=== PATIENT | female | born 1985 | race Caucasian/White ===

== ENCOUNTER 2023-06-18 13:35 | Day surgery (SDC) | payer BC ==
[2023-06-18 14:02] VITALS: BMI 40.7
[2023-06-18 15:00] LABS: Bilirubin Neg (Negative); Blood, Urine Negative (Negative); Clarity Clear (Clear); Glucose, Urine (Dipstick) Normal (Negative); Ketone, Urine Negative (Negative); Leukocyte Negative (Negative); Nitrite Negative (Negative); Protein, Urine (Dipstick) Negative (Neg-Trace); Urobilinogen Normal mg/dL (Less than 2); pH, Urine 6.5 (5.0-9.0)
[2023-06-18] MEDS ORDERED: hydrALAZINE 20 MG/ML VIAL SLOW IVP PRN (15:02)
[2023-06-18 15:41] LABS: CAUTI Indications for Culture Dysuria,urgency,freq; RBC/HPF 0-3 HPF (0-3)
[2023-06-18 15:42] LABS: Bacteria/HPF 2+ HPF (None Seen)
[2023-06-18 15:44] LABS: Urine Culture Reflex No No
== END 2023-06-18 15:25 | disposition home or self-care (01) ==
LOC: CSHLD/OP 13:35
PROVIDERS: ATTEND Obstetrics & Gynecology
DX: O47.03 False labor before 37 completed weeks of gestation, third trimester (principal); O34.211 Maternal care for low transverse scar from previous cesarean delivery; O09.523 Supervision of elderly multigravida, third trimester; Z79.899 Other long term (current) drug therapy; Z3A.35 35 weeks gestation of pregnancy
CPT/HCPCS: 81001; 99283

== ENCOUNTER 2023-07-04 14:50 | Day surgery (SDC) | payer BC ==
[2023-07-04 15:20] VITALS: BMI 39.1
[2023-07-04] MEDS ORDERED: hydrALAZINE 20 MG/ML VIAL SLOW IVP PRN (15:31)
[2023-07-04 16:13] LABS: Bilirubin Neg (Negative); Blood, Urine Negative (Negative); Clarity Clear (Clear); Glucose, Urine (Dipstick) Normal (Negative); Ketone, Urine Negative (Negative); Leukocyte 25 (Negative); Nitrite Negative (Negative); Protein, Urine (Dipstick) 15 mg/dl (Neg-Trace); Specific Gravity, Urine 1.015 (1.005-1.030)
[2023-07-04 16:26] LABS: RBC/HPF None Seen HPF (0-3); WBC/HPF 0-3 HPF (0-3)
[2023-07-04 16:27] LABS: Bacteria/HPF None Seen HPF (None Seen); Squamous Epithelial 0-3 HPF (0-3)
== END 2023-07-04 16:44 | disposition home or self-care (01) ==
LOC: CSHLD/OP 14:50
PROVIDERS: ATTEND Obstetrics & Gynecology
DX: O47.1 False labor at or after 37 completed weeks of gestation (principal); O34.211 Maternal care for low transverse scar from previous cesarean delivery; B00.9 Herpesviral infection, unspecified; O99.343 Other mental disorders complicating pregnancy, third trimester; F39 Unspecified mood [affective] disorder; N87.9 Dysplasia of cervix uteri, unspecified; Z98.890 Other specified postprocedural states; O98.513 Other viral diseases complicating pregnancy, third trimester; Z79.899 Other long term (current) drug therapy; Z3A.37 37 weeks gestation of pregnancy
CPT/HCPCS: 81001

== ENCOUNTER 2023-07-23 05:30 | Inpatient (IN) | payer BC ==
[2023-07-20 11:48] LABS: Hematocrit 40.3 % (34.9-44.5); Hemoglobin 13.9 g/dL (12.0-15.5); Mean Corpuscular HGB CONC 34.5 g/dL (32.0-36.0); Mean Corpuscular Hemoglobin 32.3 pg (27.0-33.0); Mean Corpuscular Volume 93.7 fl (81.6-98.3); Platelet Count 266 10x3/uL (150-450); RBC Distribution Width 14.4 % (11.5-14.5); White Blood Cell (WBC) Count 13.1 10x3/uL (3.5-10.5)
[2023-07-20 12:21] LABS: HBSAg Index 0.18 S/CO (0-0.99); Hep B Surf Ag Non-Reactive S/CO (NonReactive)
[2023-07-20 12:22] LABS: Syphilis Antibody Nonreactive (Nonreactive); Syphilis Antibody Index 0.13 S/CO (<1.00 Non-Reactive)
[2023-07-23] MEDS ORDERED: Ondansetron PF 4 MG/2 ML Vial IVP PRN ×4 (05:51→11:26)
[2023-07-23] MEDS ORDERED: Promethazine HCl 25 MG/ML VIAL IM PRN ×2 (05:51→06:46)
[2023-07-23] MEDS ORDERED: Lactated Ringer's 1,000 ML IV SCH (05:51)
[2023-07-23] MEDS ORDERED: hydrALAZINE 20 MG/ML VIAL SLOW IVP PRN ×2 (05:51→11:26)
[2023-07-23] MEDS ORDERED: Famotidine/PF 20 mg/2ml Vial SLOW IVP PRN (05:51)
[2023-07-23] MEDS ORDERED: Bicitra 30 ML UDCUP PO PRN (05:51)
[2023-07-23] MEDS ORDERED: CEFAZOLIN 2 GM in Sodium Chloride 0.9% 100 ML IVPB SCH (05:51)
[2023-07-23 05:52] VITALS: BMI 41.5
[2023-07-23] MEDS ORDERED: Ketorolac Tromethamine 30 MG (1 mL) VIAL IVP PRN (06:46)
[2023-07-23] MEDS ORDERED: HYDROmorphone 0.5 MG/0.5 ML SYRINGE SLOW IVP PRN (06:46)
[2023-07-23] MEDS ORDERED: Naloxone HCl 0.4 mg/ml Vial IV PRN (06:46)
[2023-07-23] MEDS ORDERED: Moisturizing Cream (Eucerin) 113 GM JAR TOP PRN (06:46)
[2023-07-23] MEDS ORDERED: Naloxone HCl 0.4 mg/ml Vial IVP PRN ×2 (06:46)
[2023-07-23] MEDS ORDERED: Promethazine HCl 25 MG SUPP PR PRN (06:46)
[2023-07-23] MEDS ORDERED: Meperidine HCl/PF 25 MG (1 mL) VIAL SLOW IVP PRN (06:46)
[2023-07-23] MEDS ORDERED: fentaNYL 50 mcg/mL 1 mL Vial SLOW IVP PRN (06:46)
[2023-07-23] MEDS ORDERED: diphenhydrAMINE 50 MG/ML VIAL IVP PRN (06:46)
[2023-07-23] MEDS ORDERED: fentaNYL 50 mcg/mL 1 mL Vial ONE (06:47)
[2023-07-23] MEDS ORDERED: Dexamethasone 4 mg/ml Vial ONE (06:47)
[2023-07-23] MEDS ORDERED: Phenylephrine 10 MG/ML VIAL ONE (06:47)
[2023-07-23] MEDS ORDERED: Ondansetron PF 4 MG/2 ML Vial ONE (06:47)
[2023-07-23] MEDS ORDERED: Morphine PF 10 MG/10 ML VIAL ONE (06:47)
[2023-07-23] MEDS ORDERED: Oxytocin 10 UNITS/ML VIAL ONE (06:48)
[2023-07-23] MEDS ORDERED: Phytonadione Neonatal 1 MG/0.5 ML AMP ONE (06:56)
[2023-07-23] MEDS ORDERED: Hepatitis B Vaccine 10 MCG/0.5 ML SYR ONE (06:56)
[2023-07-23] MEDS ORDERED: Erythromycin Base 0.5% Oint 1 GM TUBE ONE (06:56)
[2023-07-23] MEDS ORDERED: Ketorolac Tromethamine 30 MG (1 mL) VIAL IVP SCH (07:00)
[2023-07-23] MEDS ORDERED: Communication Order-Pharmacy FS SCH (07:00)
[2023-07-23] MEDS ORDERED: Sevoflurane 250 ML INH ANEST BOTTLE ONE (07:25)
[2023-07-23] MEDS ORDERED: Acetaminophen 325 MG TAB PO PRN (11:26)
[2023-07-23] MEDS ORDERED: HYDROcodone/Acetaminophen 5/325 mg Tablet PO PRN ×2 (11:26)
[2023-07-23] MEDS ORDERED: Oxytocin 30 units/NS 500 ML 500 ML IV SCH (11:26)
[2023-07-23] MEDS ORDERED: Bisacodyl 10 MG SUPP PR PRN (11:26)
[2023-07-23] MEDS ORDERED: Boostrix 0.5 ML (Tdap) VIAL (>/=7 yrs of age) IM ONE (11:26)
[2023-07-23] MEDS ORDERED: Lanolin Ointment 7 GM TUBE TOP PRN (11:26)
[2023-07-23] MEDS ORDERED: diphenhydrAMINE 25 MG CAP PO PRN (11:26)
[2023-07-23] MEDS ORDERED: Simethicone Chewable 80 MG TAB PO PRN (11:26)
[2023-07-23] MEDS ORDERED: Prenatal Vitamin 1 TAB PO SCH (12:00)
[2023-07-23] MEDS ORDERED: Ferrous Sulfate 325 MG TAB PO SCH (12:00)
[2023-07-23] MEDS ORDERED: Docusate 100 MG CAP PO SCH (12:00)
[2023-07-23] MEDS ORDERED: Ibuprofen 800 MG TAB PO SCH (14:00)
[2023-07-23] MEDS: Ketorolac Tromethamine 30 MG (1 mL) VIAL IVP PRN (15:16)
[2023-07-23] MEDS: Ferrous Sulfate 325 MG TAB PO SCH (19:18)
[2023-07-23] MEDS: Docusate 100 MG CAP PO SCH (21:06)
[2023-07-24] MEDS: Ketorolac Tromethamine 30 MG (1 mL) VIAL IVP PRN (00:09)
[2023-07-24 05:21] LABS: Hematocrit 33.8 % (34.9-44.5); Hemoglobin 11.4 g/dL (12.0-15.5); Mean Corpuscular HGB CONC 33.7 g/dL (32.0-36.0); Mean Corpuscular Hemoglobin 32.4 pg (27.0-33.0); Mean Platelet Volume 10.2 fl (7.4-10.4); Platelet Count 231 10x3/uL (150-450); RBC Distribution Width 14.9 % (11.5-14.5); Red Blood Cell (RBC) Count 3.52 10x6/uL (3.90-5.03); White Blood Cell (WBC) Count 15.7 10x3/uL (3.5-10.5)
[2023-07-24] MEDS: Ibuprofen 800 MG TAB PO SCH ×2 (06:04→13:26)
[2023-07-24] MEDS: Ferrous Sulfate 325 MG TAB PO SCH (08:21)
[2023-07-24] MEDS: Docusate 100 MG CAP PO SCH (08:34)
[2023-07-24] MEDS ORDERED: Prenatal Vitamin 1 TAB PO SCH (09:00)
[2023-07-24 16:13] VITALS: BP 133/64; TEMP 97.8
== END 2023-07-24 16:45 | disposition home or self-care (01) | DRG 787 ==
LOC: CSHLD 05:30 → CSHPP 10:55
PROVIDERS: ADMIT Obstetrics & Gynecology; ATTEND Obstetrics & Gynecology
PROC: 10D00Z1 Extraction of Products of Conception, Low, Open Approach (ICD-10-PCS; principal; 2023-07-23)
DX: O34.211 Maternal care for low transverse scar from previous cesarean delivery (principal); O98.32 Other infections with a predominantly sexual mode of transmission complicating childbirth; Z3A.39 39 weeks gestation of pregnancy; Z37.0 Single live birth; A60.00 Herpesviral infection of urogenital system, unspecified; Z79.899 Other long term (current) drug therapy
CPT/HCPCS: 36415; 51702; 85027; 86780; 86850; 86900; 86901; 87340; J1100; J1885; J2274; J2370; J2405; J2590; J3010